=== PATIENT | male | born 1935 | race Caucasian/White ===

== ENCOUNTER 2017-05-03 09:24 | Emergency (ER) | payer MEDICARE ==
[~2017-05-03] VITALS: Ht 172.7 cm; Wt 107.0 kg
[~2017-05-03 09:24] MED LIST: BACTROBAN2 % EX; COUMADIN5 MG PO; COUMADIN7.5 MG PO; DILANTIN100 MG PO; KEFLEX500 MG PO
[2017-05-03] MEDS ORDERED: LOSARTAN POTASS50 MG PO (09:50)
[2017-05-03] MEDS ORDERED: MEMANTINE HCL10 MG PO (09:51)
[2017-05-03 10:47] LABS: HEMATOCRIT 39.9 % (39.0-50.0); HEMOGLOBIN 13.9 g/dl (14.0-18.0); IMMATURE GRANULOCYTES 0.4 % (0.0-1.0); MEAN CELL VOLUME 102.6 fL CALC (80.0-100.0); MEAN CORPUSCULAR HGB 35.7 pG CALC (26.0-32.0); MEAN CORPUSCULAR HGB CONC 34.8 g/L CALC (32.0-36.0); NEUT# 6.33 thou/uL (1.82-7.42); RED BLOOD COUNT 3.89 mill/uL (4.70-6.10); RED CELL DISTRI WIDTH 13.8 % (11.5-15.5)
[2017-05-03 10:59] LABS: ALBUMIN 4.2 g/dL (3.2-5.0); ALKALINE PHOSPHATASE 77 u/l (38-126); ANION GAP 14 (6-22 (CALC)); BILIRUBIN, TOTAL 1.3 mg/dL (0.0-1.4); BUN 19 mg/dL (8-23); BUN/CREATININE RATIO 21 (12-20 (CALC)); CALCIUM 8.9 mg/dL (8.4-10.2); CARBON DIOXIDE 25 mmol/l (22-30); CHLORIDE 103 mmol/l (95-108); CREATININE 0.9 mg/dL (0.7-1.3); GFR > 60 ML/MIN (>=60 (CALC)); GFR FOR AFR.AMER. > 60 ML/MIN (>=60 (CALC)); GLUCOSE 101 mg/dL (82-115); POTASSIUM 4.1 mmol/l (3.5-5.1); SGOT/AST 30 u/l (19-48); SGPT/ALT 40 u/l (11-66); SODIUM 138 mmol/l (137-146); TOTAL PROTEIN 7.2 g/dL (6.3-8.2)
[2017-05-03 11:05] LABS: INTERNATIONAL NORMALIZED RATIO 1.6 RATIO (0.7-1.3); PROTHROMBIN TIME 18.6 SECONDS (9.0-12.5)
[2017-05-03 11:12] LABS: MYOGLOBIN 143 ng/mL (0 - 121)
[2017-05-03 11:55] VITALS: BP 148/66
[2017-05-03 12:14] LABS: URINE BILIRUBIN - DIPSTICK NEGATIVE (NEGATIVE); URINE BLOOD DIPSTICK MODERATE (NEGATIVE); URINE GLUCOSE - DIPSTICK NEGATIVE (NEGATIVE); URINE KETONE NEGATIVE (NEGATIVE); URINE LEUK ESTERASE NEGATIVE (NEGATIVE); URINE NITRITE - DIPSTICK NEGATIVE (Negative); URINE PROTEIN - DIPSTICK 30 mg/dL (NEG-TRACE); URINE SPECIFIC GRAVITY 1.025
[2017-05-03 12:15] LABS: URINE CLARITY SLIGHT CLOUDY; URINE COLOR DK. YELLOW; URINE EPITHELIAL CELLS FEW EPI/hpf (0-FEW); URINE MUCUS FEW hpf (NONE-FEW)
== END 2017-05-03 12:00 | disposition short-term general hospital (02) ==
LOC: ED 09:24
PROVIDERS: Emergency Medicine
DX: S06.5X9A Traumatic subdural hemorrhage with loss of consciousness of unspecified duration, initial encounter (principal); S63.502A Unspecified sprain of left wrist, initial encounter; I73.9 Peripheral vascular disease, unspecified; G40.909 Epilepsy, unspecified, not intractable, without status epilepticus; W19.XXXA Unspecified fall, initial encounter; Y93.89 Activity, other specified; Y92.008 Other place in unspecified non-institutional (private) residence as the place of occurrence of the external cause

== ENCOUNTER 2017-07-18 12:40 | Observation (INO) | payer MEDICARE ==
[~2017-07-18] VITALS: Ht 172.7 cm; Wt 94.0 kg
[~2017-07-18 12:40] MED LIST changes: +LOSARTAN POTASS50 MG PO; +MEMANTINE HCL10 MG PO
[2017-07-18 13:46] LABS: HEMATOCRIT 40.3 % (39.0-50.0); HEMOGLOBIN 13.8 g/dl (14.0-18.0); IMMATURE GRANULOCYTES 0.5 % (0.0-1.0); MEAN CELL VOLUME 103.3 fL CALC (80.0-100.0); MEAN CORPUSCULAR HGB 35.4 pG CALC (26.0-32.0); MEAN CORPUSCULAR HGB CONC 34.2 g/L CALC (32.0-36.0); NEUT# 8.21 thou/uL (1.82-7.42); RED BLOOD COUNT 3.9 mill/uL (4.70-6.10); RED CELL DISTRI WIDTH 13.5 % (11.5-15.5)
[2017-07-18 13:54] LABS: URINE BILIRUBIN - DIPSTICK NEGATIVE (NEGATIVE); URINE BLOOD DIPSTICK LARGE (NEGATIVE); URINE GLUCOSE - DIPSTICK NEGATIVE (NEGATIVE); URINE KETONE NEGATIVE (NEGATIVE); URINE LEUK ESTERASE NEGATIVE (NEGATIVE); URINE NITRITE - DIPSTICK NEGATIVE (Negative); URINE PH 6.5 (4.5-8.0); URINE PROTEIN - DIPSTICK >=300 mg/dL (NEG-TRACE); URINE SPECIFIC GRAVITY 1.025; URINE UROBILINOGEN - DIPSTICK 0.2 E.U./dL (0.2)
[2017-07-18 13:57] LABS: URINE CLARITY CLOUDY; URINE COLOR BLOODY
[2017-07-18 13:58] LABS: URINE RBC TNTC RBC/hpf (0-5); URINE SQUAMOUS EPITHELIAL CELL FEW EPI/hpf (0-FEW)
[2017-07-18 14:05] LABS: ALBUMIN 4.2 g/dL (3.2-5.0); ALKALINE PHOSPHATASE 118 u/l (38-126); AMYLASE 86 u/l (30-110); ANION GAP 20 (6-22 (CALC)); BILIRUBIN, TOTAL 0.7 mg/dL (0.0-1.4); BUN 13 mg/dL (8-23); BUN/CREATININE RATIO 14 (12-20 (CALC)); CALCIUM 9.3 mg/dL (8.4-10.2); CARBON DIOXIDE 22 mmol/l (22-30); CHLORIDE 105 mmol/l (95-108); CREATININE 0.9 mg/dL (0.7-1.3); GFR > 60 ML/MIN (>=60 (CALC)); GFR FOR AFR.AMER. > 60 ML/MIN (>=60 (CALC)); GLUCOSE 150 mg/dL (82-115); LIPASE 281 u/l (23-300); POTASSIUM 4.4 mmol/l (3.5-5.1); SGOT/AST 25 u/l (19-48); SGPT/ALT 36 u/l (11-66); SODIUM 142 mmol/l (137-146); TOTAL PROTEIN 7.6 g/dL (6.3-8.2)
[2017-07-18 14:17] LABS: MYOGLOBIN 65 ng/mL (0 - 121)
[2017-07-18 19:09] LABS: HEMATOCRIT 40.3 % (39.0-50.0); HEMOGLOBIN 13.3 g/dl (14.0-18.0); IMMATURE GRANULOCYTES 0.7 % (0.0-1.0); MEAN CELL VOLUME 106.3 fL CALC (80.0-100.0); MEAN CORPUSCULAR HGB 35.1 pG CALC (26.0-32.0); NEUT# 9.44 thou/uL (1.82-7.42); RED BLOOD COUNT 3.79 mill/uL (4.70-6.10); RED CELL DISTRI WIDTH 13.9 % (11.5-15.5)
[2017-07-18 19:30] LABS: ANION GAP 21 (6-22 (CALC)); BUN 15 mg/dL (8-23); BUN/CREATININE RATIO 17 (12-20 (CALC)); CALCIUM 9.2 mg/dL (8.4-10.2); CARBON DIOXIDE 20 mmol/l (22-30); CHLORIDE 104 mmol/l (95-108); CREATININE 0.9 mg/dL (0.7-1.3); GFR > 60 ML/MIN (>=60 (CALC)); GFR FOR AFR.AMER. > 60 ML/MIN (>=60 (CALC)); GLUCOSE 141 mg/dL (82-115); POTASSIUM 5.2 mmol/l (3.5-5.1); SODIUM 140 mmol/l (137-146)
[2017-07-18 19:40] VITALS: BP 148/77
[2017-07-18 23:40] VITALS: BP 118/67
[2017-07-19 03:40] VITALS: BP 125/71
[2017-07-19 05:52] LABS: HEMATOCRIT 35.9 % (39.0-50.0); HEMOGLOBIN 12.2 g/dl (14.0-18.0); IMMATURE GRANULOCYTES 0.6 % (0.0-1.0); MEAN CELL VOLUME 103.5 fL CALC (80.0-100.0); MEAN CORPUSCULAR HGB 35.2 pG CALC (26.0-32.0); NEUT# 6.58 thou/uL (1.82-7.42); RED BLOOD COUNT 3.47 mill/uL (4.70-6.10)
[2017-07-19 05:57] LABS: ANION GAP 17 (6-22 (CALC)); BUN 21 mg/dL (8-23); BUN/CREATININE RATIO 21 (12-20 (CALC)); CALCIUM 8.6 mg/dL (8.4-10.2); CARBON DIOXIDE 25 mmol/l (22-30); CHLORIDE 103 mmol/l (95-108); GFR > 60 ML/MIN (>=60 (CALC)); GFR FOR AFR.AMER. > 60 ML/MIN (>=60 (CALC)); GLUCOSE 105 mg/dL (82-115); SODIUM 140 mmol/l (137-146)
[2017-07-19 08:00] VITALS: BP 127/79
[2017-07-19 09:05] VITALS: BP 127/79
== END 2017-07-19 14:35 | disposition home or self-care (01) ==
LOC: ED 12:40 → ED-I 13:00 → ED 13:00 → ED-I 16:56 → ED 17:17 → MS2 17:18
PROVIDERS: Emergency Medicine; ADMIT Internal Medicine; ATTEND Internal Medicine
DX: M62.830 Muscle spasm of back (principal); R31.9 Hematuria, unspecified; I10 Essential (primary) hypertension; I73.9 Peripheral vascular disease, unspecified; R09.02 Hypoxemia; G40.909 Epilepsy, unspecified, not intractable, without status epilepticus; Z86.718 Personal history of other venous thrombosis and embolism; Z86.79 Personal history of other diseases of the circulatory system; Z87.442 Personal history of urinary calculi; Z79.899 Other long term (current) drug therapy
CPT/HCPCS: G0378

== ENCOUNTER 2017-07-26 10:23 | Emergency (ER) | payer MEDICARE ==
[~2017-07-26] VITALS: Ht 172.7 cm; Wt 100.0 kg
[2017-07-26 11:08] LABS: HEMATOCRIT 34.6 % (39.0-50.0); IMMATURE GRANULOCYTES 0.7 % (0.0-1.0); MEAN CELL VOLUME 100.9 fL CALC (80.0-100.0); MEAN CORPUSCULAR HGB CONC 34.7 g/L CALC (32.0-36.0); NEUT# 10.11 thou/uL (1.82-7.42); RED BLOOD COUNT 3.43 mill/uL (4.70-6.10)
[2017-07-26 11:24] LABS: PROTHROMBIN TIME 11.1 SECONDS (9.0-12.5)
[2017-07-26 11:26] LABS: ALBUMIN 3.9 g/dL (3.2-5.0); ALKALINE PHOSPHATASE 112 u/l (38-126); ANION GAP 21 (6-22 (CALC)); BILIRUBIN, TOTAL 1.6 mg/dL (0.0-1.4); BUN 29 mg/dL (8-23); BUN/CREATININE RATIO 21 (12-20 (CALC)); CALCIUM 8.9 mg/dL (8.4-10.2); CARBON DIOXIDE 20 mmol/l (22-30); CHLORIDE 97 mmol/l (95-108); CREATININE 1.4 mg/dL (0.7-1.3); GFR 49 ML/MIN (>=60 (CALC)); GFR FOR AFR.AMER. 59 ML/MIN (>=60 (CALC)); GLUCOSE 170 mg/dL (82-115); POTASSIUM 4.3 mmol/l (3.5-5.1); SGOT/AST 87 u/l (19-48); SGPT/ALT 113 u/l (11-66); SODIUM 134 mmol/l (137-146); TOTAL PROTEIN 7.6 g/dL (6.3-8.2)
[2017-07-26 11:39] LABS: MYOGLOBIN 97 ng/mL (0 - 121)
[2017-07-26 12:23] LABS: URINE BLOOD DIPSTICK LARGE (NEGATIVE); URINE COLOR YELLOW; URINE GLUCOSE - DIPSTICK NEGATIVE (NEGATIVE); URINE KETONE NEGATIVE (NEGATIVE); URINE LEUK ESTERASE NEGATIVE (NEGATIVE); URINE NITRITE - DIPSTICK NEGATIVE (Negative); URINE PROTEIN - DIPSTICK 100 mg/dL (NEG-TRACE); URINE SPECIFIC GRAVITY >=1.030
[2017-07-26 12:25] LABS: URINE BILIRUBIN - DIPSTICK SMALL (NEGATIVE); URINE CLARITY SLIGHT CLOUDY
[2017-07-26 12:26] LABS: URINE MUCUS FEW hpf (NONE-FEW)
[2017-07-26 17:38] VITALS: BP 116/55
== END 2017-07-26 17:39 | disposition short-term general hospital (02) ==
LOC: ED 10:23 → ED-I 14:01 → ED 17:39
PROVIDERS: Emergency Medicine
DX: I82.412 Acute embolism and thrombosis of left femoral vein (principal); I82.432 Acute embolism and thrombosis of left popliteal vein; R22.42 Localized swelling, mass and lump, left lower limb; R06.02 Shortness of breath; I73.9 Peripheral vascular disease, unspecified
CPT/HCPCS: J1650; Q9967

== ENCOUNTER 2022-05-15 15:50 | Emergency (ER) | payer MEDICARE ==
[~2022-05-15] VITALS: Ht 172.7 cm; Wt 93.6 kg
[2022-05-15] VITALS (18 sets, daily range): BP systolic 75–150; BP diastolic 56–82
[2022-05-15 17:08] LABS: IMMATURE GRANULOCYTES 0.3 % (0.0-5.0); MEAN CELL VOLUME 103.6 fL CALC (80.0-100.0); MEAN CORPUSCULAR HGB 35.3 pG CALC (26.0-32.0); MEAN CORPUSCULAR HGB CONC 34.1 g/dL CAL (32.0-36.0); NEUT# 6.5 thou/uL (1.82-7.42); RED BLOOD COUNT 3.31 mill/uL (4.70-6.10); RED CELL DISTRI WIDTH 14.2 % (11.5-15.5)
[2022-05-15 17:10] LABS: HEMATOCRIT 34.3 % (39.0-50.0); HEMOGLOBIN 11.7 g/dl (14.0-18.0)
[2022-05-15 17:27] LABS: BILIRUBIN, TOTAL 0.5 mg/dL (0.0-1.4); BUN 15 mg/dL (8-23); BUN/CREATININE RATIO 16 (12-20 (CALC)); CARBON DIOXIDE 23 mmol/l (22-30); CHLORIDE 100 mmol/l (95-108); CREATININE 0.9 mg/dL (0.7-1.3); GFR FOR AFR.AMER. > 60 ML/MIN (>=60 (CALC)); GFR OTHER RACES > 60 ML/MIN (>=60 (CALC)); POTASSIUM 4.2 mmol/l (3.5-5.1); TOTAL PROTEIN 6.6 g/dL (6.3-8.2)
[2022-05-15 17:33] LABS: ALBUMIN 3.2 g/dL (3.2-5.0); ALKALINE PHOSPHATASE 162 u/l (38-126); ANION GAP 11 (6-22 (CALC)); SGOT/AST 102 u/l (19-48); SODIUM 130 mmol/l (137-146)
[2022-05-15 17:34] LABS: INTERNATIONAL NORMALIZED RATIO 1.5 RATIO (0.7-1.3)
[2022-05-15 17:41] LABS: C-REACTIVE PROTEIN 17.8 mg/dL (0-0.9)
[2022-05-15] MEDS ORDERED: FUROSEMIDE20 MG PO (18:14)
[2022-05-15] MEDS ORDERED: CEPHALEXIN500 MG PO (18:14)
[2022-05-15] MEDS ORDERED: WARFARIN SODIUM5 MG PO (18:14)
== END 2022-05-15 21:22 | disposition short-term general hospital (02) ==
LOC: ED 15:50
PROVIDERS: Family Medicine
PROC: 02HV33Z Insertion of Infusion Device into Superior Vena Cava, Percutaneous Approach (ICD-10-PCS; principal; 2022-05-15)
DX: U07.1 COVID-19 (principal); J12.82 Pneumonia due to coronavirus disease 2019; I21.4 Non-ST elevation (NSTEMI) myocardial infarction; I11.0 Hypertensive heart disease with heart failure; I50.9 Heart failure, unspecified; Z86.718 Personal history of other venous thrombosis and embolism; Z95.828 Presence of other vascular implants and grafts
CPT/HCPCS: J1644; Q9967